=== PATIENT | male | born 1960 | race Caucasian/White ===

== ENCOUNTER 2017-04-21 18:59 | Inpatient (IN) | payer MEDICARE, MEDICAID ==
[~2017-04-21] VITALS: Ht 170.2 cm; Wt 65.3 kg
[2017-04-21 19:10] VITALS: BP 114/77
[2017-04-21] MEDS ORDERED: Albuterol ud Inhalation HHN ONE (19:45)
[2017-04-21] MEDS ORDERED: Acetaminophen 500mg (ES) tab ORAL ONE (20:00)
[2017-04-21] MEDS ORDERED: NS 1000ml 2,200 ML IVLG ONE (20:00)
[2017-04-21] MEDS ORDERED: Bactrim-DS 1 tab ORAL ONE (20:15)
[2017-04-21] MEDS ORDERED: cefTRIAXone 1 GM in NS 55 ML IVPB ONE (20:15)
[2017-04-21 20:34] LABS: BILIRUBIN, URINE NEGATIVE (NEGATIVE); GLUCOSE, URINE (UA) NEGATIVE (NEGATIVE); KETONES,URINE NEGATIVE (NEGATIVE); LEUKOCYTE ESTERASE ,URINE NEGATIVE (NEGATIVE); NITRITE,URINE NEGATIVE (NEGATIVE); PH,URINE 5 (4.5-8.0); PROTEIN,URINE 3+ (NEGATIVE); UROBILINOGEN,URINE 4 MG/DL (0.0-1.0)
[2017-04-21 20:41] LABS: APPEARANCE,URINE CLEAR; BASOPHILS % (AUTO) 0.4 % (0.0-2.0); COLOR,URINE YELLOW; HEMATOCRIT 39.9 % (42.0-52.0); HEMOGLOBIN 13.6 G/DL (14.2-18.0); MEAN CORPUSCULAR VOLUME 85 FL (80-99); MONOCYTES % (AUTO) 7.5 % (1.0-10.0); NEUTROPHILS % (AUTO) 76.1 % (45.0-75.0); PLATELET COUNT 275 K/UL (150-450); RED BLOOD COUNT 4.68 M/UL (4.70-6.10); RED CELL DISTRIBUTION WIDTH 11.1 % (11.6-14.8); WHITE BLOOD COUNT 7.9 K/UL (4.8-10.8)
[2017-04-21 20:46] LABS: ANION GAP 8 mmol/L (5-15); BLOOD UREA NITROGEN 24 mg/dL (7-18); CARBON DIOXIDE 25 MMOL/L (21-32); CHLORIDE 95 MMOL/L (98-107); CREATININE 1.5 MG/DL (0.55-1.30); POTASSIUM 3.5 MMOL/L (3.5-5.1); SODIUM 128 MMOL/L (136-145)
[2017-04-21] MEDS ORDERED: EDURANT25 MG PO (20:50)
[2017-04-21] MEDS ORDERED: TIVICAY50 MG ORAL (20:50)
[2017-04-21] MEDS ORDERED: PREZCOBIX 8001 EACH PO (20:50)
[2017-04-21 20:51] LABS: ALANINE AMINOTRANSFERASE 46 U/L (12-78); ALBUMIN 2.5 G/DL (3.4-5.0); ALBUMIN/GLOBULIN RATIO 0.4 (1.0-2.7); ALKALINE PHOSPHATASE 71 U/L (46-116); ASPARTATE AMINO TRANSFERASE 59 U/L (15-37); BILIRUBIN,TOTAL 0.5 MG/DL (0.2-1.0)
[2017-04-21] MEDS ORDERED: ZITHROMAX250 MG ORAL (20:54)
[2017-04-21] MEDS ORDERED: ANDROGEL75 G2 TDERMAL (20:54)
[2017-04-21] MEDS ORDERED: EXCEDRIN MIGRA1 EAC1 PO (20:55)
--- NOTE | 2017-04-21 20:56 | Emergency Room Report ---
History of Present Illness General Chief Complaint: Dyspnea/Respdistress Source: Patient, Medical Record Present Illness HPI This patient states that since Wednesday he has had flulike symptoms. He describes fatigue, body aches, fever, cough and congestion and shortness of breath. He does have a history of HIV. He states that he has been controlled and is on antiretroviral therapy. He states his last viral load about one month ago was just over undetectable. His last CDC count was in the 500s. He has no history of AIDS defining illness. He denies abdominal pain. He denies nausea or vomiting. He has no other complaints. 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, Denies: smoking, alcohol use Reviewed Nursing Documentation: PMH: Agreed, PSxH: Agreed Nursing Documentation-PMH Past Medical History: No History, Except For Review of Systems All Other Systems: negative except mentioned in HPI Physical Exam Vital Signs Date Time Temp Pulse Resp B/P (MAP) Pulse Ox O2 Delivery O2 Flow Rate FiO2 04/21/17 18:54 98.5 122 18 114/78 97 Room Air 98.4 04/21/17 20:03 4.0 36 Sp02 EP Interpretation: reviewed, normal General Appearance: no apparent distress, alert, GCS 15, non-toxic, cachetic Head: normocephalic, atraumatic Eyes: bilateral eye normal inspection, bilateral eye PERRL ENT: hearing grossly normal, normal pharynx, no angioedema, normal voice Neck: full range of motion, supple/symm/no masses Respiratory: chest non-tender, no respiratory distress, no retraction, no accessory muscle use, rales, rhonchi, speaking full sentences Cardiovascular #1: no edema, tachycardia Gastrointestinal: normal bowel sounds, non tender, soft, non-distended, no guarding, no rebound Rectal: deferred Musculoskeletal: back normal, gait/station normal, normal range of motion, non- tender Neurologic: alert, oriented x3, responsive, motor strength/tone normal, sensory intact, speech normal Psychiatric: judgement/insight normal, memory normal, mood/affect normal, no suicidal/homicidal ideation Skin: normal color, no rash, warm/dry, well hydrated Medical Decision Making Diagnostic Impression: Primary Impression: Pneumonia Additional Impressions: Hyponatremia Acute kidney injury ER Course This patient presents with multilobar pneumonia. He also has a history of HIV. He is hypoxemic and requiring 2 L of nasal cannula to maintain oxygen saturations in the 90s. He has no respiratory distress. However, given his immunocompromise and oxygen requirement, I felt that this patient should be admitted for further evaluation and treatment. He was given broad-spectrum antibiotics and IV fluids here in the emergency department. He was admitted to the ICU stepdown. This patient is critically ill. This patient required complex medical decision- making, aggressive intervention, extensive laboratory workup and monitoring. Critical care time: 40 minutes. Laboratory Tests Test 04/21/17 19:55 White Blood Count 7.9 K/UL (4.8-10.8) Red Blood Count 4.68 M/UL (4.70-6.10) L Hemoglobin 13.6 G/DL (14.2-18.0) L Hematocrit 39.9 % (42.0-52.0) L Mean Corpuscular Volume 85 FL (80-99) Mean Corpuscular Hemoglobin 29.0 PG (27.0-31.0) Mean Corpuscular Hemoglobin Concent 34.1 G/DL (32.0-36.0) Red Cell Distribution Width 11.1 % (11.6-14.8) L Platelet Count 275 K/UL (150-450) Mean Platelet Volume 6.9 FL (6.5-10.1) Neutrophils (%) (Auto) 76.1 % (45.0-75.0) H Lymphocytes (%) (Auto) 16.0 % (20.0-45.0) L Monocytes (%) (Auto) 7.5 % (1.0-10.0) Eosinophils (%) (Auto) 0.0 % (0.0-3.0) Basophils (%) (Auto) 0.4 % (0.0-2.0) Urine Color Yellow Urine Appearance Clear Urine pH 5 (4.5-8.0) Urine Specific [place] 1.010 (1.005-1.035) Urine Protein 3+ (NEGATIVE) H Urine Glucose (UA) Negative (NEGATIVE) Urine Ketones Negative (NEGATIVE) Urine Occult Blood 4+ (NEGATIVE) H Urine Nitrite Negative (NEGATIVE) Urine Bilirubin Negative (NEGATIVE) Urine Urobilinogen 4 MG/DL (0.0-1.0) H Urine Leukocyte Esterase Negative (NEGATIVE) Urine RBC 2-4 /HPF (0 - 0) H Urine WBC 0-2 /HPF (0 - 0) Urine Squamous Epithelial Cells None /LPF (NONE/OCC) Urine Amorphous Sediment Few /LPF (NONE) H Urine Bacteria Few /HPF (NONE) Sodium Level 128 MMOL/L (136-145) L Potassium Level 3.5 MMOL/L (3.5-5.1) Chloride Level 95 MMOL/L (98-107) L Carbon Dioxide Level 25 MMOL/L (21-32) Anion Gap 8 mmol/L (5-15) Blood Urea Nitrogen 24 mg/dL (7-18) H Creatinine 1.5 MG/DL (0.55-1.30) H Estimate Glomerular Filtration Rate 48.4 mL/min (>60) Glucose Level 135 MG/DL (74-106) H Calcium Level 9.0 MG/DL (8.5-10.1) Total Bilirubin Pending Aspartate Amino Transferase (AST) Pending Alanine Aminotransferase (ALT) Pending Alkaline Phosphatase Pending Troponin I Pending Total Protein Pending Albumin Pending Globulin Pending EKG Diagnostic Results Rate: tachycardiac Rhythm: other - S.tachycardia ST Segments: no acute changes Rhythm Strip Diag. Results EP Interpretation: yes Rate: 110's Rhythm: no PVC's, no ectopy, other - S.tachycardia Chest X-Ray Diagnostic Results Chest X-Ray Diagnostic Results : Chest X-Ray Ordered: Yes # of Views/Limited/Complete: 1 View Indication: Shortness of Breath EP Interpretation: Yes Interpretation: no pneumothorax, other Impression: Other - RLL and LLL opacities Last Vital Signs Date Time Temp Pulse Resp B/P (MAP) Pulse Ox O2 Delivery O2 Flow Rate FiO2 04/21/17 20:19 101.0 04/21/17 20:18 115 20 98 Nasal Cannula 4.0 36 04/21/17 19:10 114/77 Disposition: ADMITTED INPATIENT Condition: Critical Referrals: NOT CHOSEN IPA/,REFERRING (PCP) SMITH LIM D.O. Apr 21, 2017 20:56
[2017-04-21 21:24] VITALS: BP 103/73
[2017-04-21] MEDS ORDERED: Albuterol/Ipratropium 3ml neb HHN PRN (21:45)
[2017-04-22 00:08] VITALS: BP 107/50
[2017-04-22 01:20] VITALS: BP 107/50
[2017-04-22] MEDS ORDERED: Azithromycin 500 MG in NS 275 ML IV ONE (02:00)
[2017-04-22] MEDS ORDERED: Azithromycin 500mg Inj IV ONE (03:17)
[2017-04-22] MEDS ORDERED: cefTRIAXone 1 GM in NS 55 ML IVPB ONE (08:00)
--- NOTE | 2017-04-22 08:24 | History and Physical ---
History of Present Illness General Date patient seen: Apr 22, 2017 Time patient seen: 08:23 Reason for Hospitalization: Dyspnea/Respdistress Present Illness Allergies: Coded Allergies: No Known Allergies (Unverified , 04/21/17) Medication History Scheduled Darunavir/Cobicistat (Prezcobix 800 mg-150 mg Tablet), 1 EACH PO DAILY, ( Reported) Dolutegravir Sodium (Tivicay), 50 MG ORAL DAILY, (Reported) Rilpivirine Hcl (Edurant), 25 PO DAILY, (Reported) Scheduled PRN Aspirin/Acetaminophen/Caffeine (Excedrin Migraine Caplet), 1 EACH PO BID PRN for For Headache, (Reported) Testosterone (Androgel), 1 UNIT TDERMAL PRN PRN for OTHER, (Reported) Miscellaneous Medications Azithromycin* (Zithromax*), 250 MG ORAL, (Reported) Patient History Healthcare decision maker Resuscitation status Full Code Advanced Directive on File No Physical Exam Last 24 Hour Vital Signs Date Time Temp Pulse Resp B/P (MAP) Pulse Ox O2 Delivery O2 Flow Rate FiO2 04/22/17 01:20 97.4 99 16 107/50 94 Nasal Cannula 3.0 36 97.4 04/22/17 00:08 97.4 99 16 107/50 94 Nasal Cannula 3.0 97.4 04/21/17 21:25 98.6 04/21/17 21:24 98.6 110 16 103/73 98 Nasal Cannula 3.0 98.6 04/21/17 20:19 101.0 04/21/17 20:18 115 20 98 Nasal Cannula 4.0 36 04/21/17 20:03 115 20 97 Nasal Cannula 4.0 36 04/21/17 20:03 115 20 Nasal Cannula 4.0 36 04/21/17 19:10 101.0 122 20 114/77 89 Room Air 101.0 04/21/17 19:10 122 18 Room Air 04/21/17 18:54 98.5 122 18 114/78 97 Room Air 98.4 Intake and Output 04/21/17 04/22/17 19:00 07:00 Intake Total 3100 ml Output Total 625 ml Balance 2475 ml Intake Oral 420 ml IV Total 2680 ml Output Urine Total 625 ml # Voids 3 Laboratory Tests Test 04/21/17 19:55 White Blood Count 7.9 K/UL (4.8-10.8) Red Blood Count 4.68 M/UL (4.70-6.10) L Hemoglobin 13.6 G/DL (14.2-18.0) L Hematocrit 39.9 % (42.0-52.0) L Mean Corpuscular Volume 85 FL (80-99) Mean Corpuscular Hemoglobin 29.0 PG (27.0-31.0) Mean Corpuscular Hemoglobin Concent 34.1 G/DL (32.0-36.0) Red Cell Distribution Width 11.1 % (11.6-14.8) L Platelet Count 275 K/UL (150-450) Mean Platelet Volume 6.9 FL (6.5-10.1) Neutrophils (%) (Auto) 76.1 % (45.0-75.0) H Lymphocytes (%) (Auto) 16.0 % (20.0-45.0) L Monocytes (%) (Auto) 7.5 % (1.0-10.0) Eosinophils (%) (Auto) 0.0 % (0.0-3.0) Basophils (%) (Auto) 0.4 % (0.0-2.0) Urine Color Yellow Urine Appearance Clear Urine pH 5 (4.5-8.0) Urine Specific [place] 1.010 (1.005-1.035) Urine Protein 3+ (NEGATIVE) H Urine Glucose (UA) Negative (NEGATIVE) Urine Ketones Negative (NEGATIVE) Urine Occult Blood 4+ (NEGATIVE) H Urine Nitrite Negative (NEGATIVE) Urine Bilirubin Negative (NEGATIVE) Urine Urobilinogen 4 MG/DL (0.0-1.0) H Urine Leukocyte Esterase Negative (NEGATIVE) Urine RBC 2-4 /HPF (0 - 0) H Urine WBC 0-2 /HPF (0 - 0) Urine Squamous Epithelial Cells None /LPF (NONE/OCC) Urine Amorphous Sediment Few /LPF (NONE) H Urine Bacteria Few /HPF (NONE) Sodium Level 128 MMOL/L (136-145) L Potassium Level 3.5 MMOL/L (3.5-5.1) Chloride Level 95 MMOL/L (98-107) L Carbon Dioxide Level 25 MMOL/L (21-32) Anion Gap 8 mmol/L (5-15) Blood Urea Nitrogen 24 mg/dL (7-18) H Creatinine 1.5 MG/DL (0.55-1.30) H Estimat Glomerular Filtration Rate 48.4 mL/min (>60) Glucose Level 135 MG/DL (74-106) H Calcium Level 9.0 MG/DL (8.5-10.1) Total Bilirubin 0.5 MG/DL (0.2-1.0) Aspartate Amino Transf (AST/SGOT) 59 U/L (15-37) H Alanine Aminotransferase (ALT/SGPT) 46 U/L (12-78) Alkaline Phosphatase 71 U/L (46-116) Troponin I 0.000 ng/mL (0.000-0.056) Total Protein 8.4 G/DL (6.4-8.2) H Albumin 2.5 G/DL (3.4-5.0) L Globulin 5.9 g/dL Albumin/Globulin Ratio 0.4 (1.0-2.7) L Microbiology Date/Time Source Procedure Growth Status 04/21/17 20:25 Nasal Nares Influenza Types A,B Antigen (OSMAR) - Final Complete Height (Feet): 5 Height (Inches): 7.00 Weight (Pounds): 144 Medications Current Medications Medications (Trade) Dose Ordered Sig/Ruby Route PRN Reason Start Time Stop Time Status Last Admin Dose Admin Albuterol/ Ipratropium (Albuterol/ Ipratropium) 3 ml EVERY 4 HOURS PRN HHN Shortness of Breath 04/21/17 21:45 04/26/17 21:44 Ceftriaxone Sodium 1 gm/ Sodium Chloride 55 ml @ 110 mls/hr ONCE ONCE IVPB 04/22/17 08:00 04/22/17 08:29 Dextrose (Dextrose 50%) STAT PRN IV Hypoglycemia 04/21/17 21:45 05/21/17 21:44 Sodium Chloride 1,000 ml @ 50 mls/hr Q20H IVLG 04/21/17 22:44 05/21/17 22:43 04/22/17 02:00 Geraldine Vizcaino M.D. Apr 22, 2017 08:23
[2017-04-22] MEDS ORDERED: NS 275ml ONE (08:59)
[2017-04-22] MEDS ORDERED: Tubing IV Secondary IV ONE (08:59)
--- NOTE | 2017-04-22 10:21 | Diagnostic Imaging Report ---
Indication: Dyspnea Comparison: None A single view chest radiograph was obtained. Findings: Interstitial opacities are present at the lung bases, some of which represent atelectasis. Pneumonia not entirely excludable. Follow-up suggested. Heart size is normal. Bones are osteopenic. IMPRESSION: Basilar atelectasis. Mild superimposed pneumonia cannot entirely excludable. Please correlate clinically. Follow-up suggested.
--- NOTE | 2017-04-23 13:02 | Discharge Summary ---
Discharge Summary Hospital Course Date of Admission Apr 21, 2017 at 20:54 Date of Discharge Apr 22, 2017 at 09:00 Admitting Diagnosis PNEUMONIA, HYPOXEMIA CHARLENE Sahu is a 56 year old male who was admitted on Apr 21, 2017 at 20:54 for Pneumonia,Hypoxemia Hospital Course [id number] Discharge Discharge Disposition Patient left AMA Discharge Diagnoses: Anjelica Pantoja NP Apr 23, 2017 13:02
--- NOTE | 2017-04-24 02:30 | Discharge Summary 2 SIG ---
DATE OF ADMISSION: 04/21/2017 DATE OF DISCHARGE: 04/22/2017 BRIEF HOSPITAL COURSE: The patient is a 56-year-old male, who had presented to ED complaining of flu-like symptoms with fatigue, body aches, fever, cough, congestion, and shortness of breath. He has history of HIV and is on anti-retroviral therapy. On evaluation at ED, he had a chest x-ray that showed right lower lobe and left lobe opacities. He was admitted to [facility] for evaluation of hypoxemia and pneumonia and was ordered to receive antibiotics. However, full treatment was not carried out as the patient left against medical advice. FINAL DIAGNOSES: 1. Pneumonia. 2. Hyponatremia. Sodium level of 128. 3. Acute kidney injury. BUN 24 and creatinine 1.5. DISPOSITION: The patient left AMA. Geraldine Vizcaino M.D. I have been assigned to dictate discharge summary on this account and I was not involved in the patient's management. Anjelica Pantoja N.P. DR: LISA JOB#: [id number] CC:
--- NOTE | 2017-04-25 16:21 | Cardiology Report ---
APPROVED REPORT EKG Measurement Heart [id number] Sinus tachycardia with premature atrial complexes Right atrial enlargement Borderline ECG
== END 2017-04-22 09:00 | disposition left against medical advice (07) | DRG 194 ==
LOC: EDBD 18:59 → EMR 19:23 → 2W 20:54 → EDBEDREQ 04-22 00:01
DX: J18.9 Pneumonia, unspecified organism (principal); N17.9 Acute kidney failure, unspecified; E87.1 Hypo-osmolality and hyponatremia; R09.02 Hypoxemia; Z53.21 Procedure and treatment not carried out due to patient leaving prior to being seen by health care provider
CPT/HCPCS: 36415; 71045; 80053; 81003; 84484; 85025; 86710; 87040; 93005; 94640; 94664; 99291